=== PATIENT | female | born 1965 | race American Indian/Alaskan Native ===

== ENCOUNTER 2021-01-25 11:31 | Emergency (ER) | payer SELFPAY ==
[2021-01-25 13:14] VITALS: BP 153/71
--- NOTE | 2021-01-25 13:32 | Emergency Department Report ---
ED General Adult HPI - General Chief complaint: Upper Respiratory Infection Stated complaint: SINUS INFECTION Time Seen by Provider: 01/25/21 12:43 Source: patient Mode of arrival: Ambulatory Limitations: No Limitations - History of Present Illness Initial comments: 55-year-old female patient with history of hypertension presents emergency department with complaints of nonproductive cough, nasal congestion, ear pain bilaterally, and sinus pressure for 4 weeks. No known sick contacts. No current steroid or antibiotic use. She has not been on any antibiotics since her symptoms began. She has been using [id number] Tylenol, antihistamines, and Flonase with limited relief. She is out of her blood pressure medication. She does not currently have a primary care provider. Denies fever, chills, neck stiffness, rash, vomiting, shortness of breath, wheezing. Denies all other complaints at this time. - Related Data Previous Rx's Medication Instructions Recorded Last Taken Type Doxycycline Hyclate 100 mg PO BID 5 Days tablet. 01/25/21 Unknown Rx Lisinopril [Zestril] 20 mg PO ONCE 7 Days tablet 01/25/21 Unknown Rx guaiFENesin/DEXTROMETHORPHAN 1 each PO Q6H #20 capsule 01/25/21 Unknown Rx [Coricidin Hbp Chest Jeffery-Cough] hydroCHLOROthiazide [Hctz] 12.5 mg PO QDAY 7 Days capsule 01/25/21 Unknown Rx ED Review of Systems ROS: Stated complaint: SINUS INFECTION Other details as noted in HPI Other: GENERAL: Negative for fever, chills, weight change, anorexia, fatigue. ENT: Positive for ear pain, sore throat, congestion. CARDIOVASCULAR: Negative for chest pain, palpitations, lower extremity swelling. PULMONARY: Negative for cough, dyspnea, wheezing, orthopnea, cyanosis. GASTROINTESTINAL: Negative for abdominal pain, nausea, vomiting, diarrhea, constipation. MUSCULOSKELETAL: Negative for joint pain, joint swelling, myalgias, back pain, neck pain. NEUROLOGICAL: Negative for headache, seizure, syncope, paresthesias, weakness. INTEGUMENTARY: Negative for erythema, rash, diaphoresis, laceration, ecchymosis. HEMATOLOGICAL: Negative for hemoptysis, hematemesis, hematochezia, hematuria. PSYCHIATRIC: Negative for hallucinations, suicidal ideation, homicidal ideation, anxiety, depression. ED Past Medical Hx - Past Medical History Hx Hypertension: Yes - Surgical History Past Surgical History?: No - Social History Smoking Status: Never Smoker Substance Use Type: None - Medications Home Medications: Home Medications Medication Instructions Recorded Confirmed Last Taken Type Doxycycline Hyclate 100 mg PO BID 5 Days tablet. 01/25/21 Unknown Rx Lisinopril [Zestril] 20 mg PO ONCE 7 Days tablet 01/25/21 Unknown Rx guaiFENesin/DEXTROMETHORPHAN 1 each PO Q6H #20 capsule 01/25/21 Unknown Rx [Coricidin Hbp Chest Jeffery-Cough] hydroCHLOROthiazide [Hctz] 12.5 mg PO QDAY 7 Days capsule 01/25/21 Unknown Rx ED Physical Exam - General Limitations: No Limitations - Other Other exam information: General: Awake and alert. No acute distress. Head: Atraumatic, normocephalic. Bilateral frontal and maxillary sinus tenderness. Eyes: EOMI. Pupils are equal and round. Normal sclera and conjunctiva. ENT: Oral mucosa is moist. Normal pharyngeal exam. Normal otoscopic exam. Neck: Supple. No lymphadenopathy. Pulmonary: No respiratory distress. Clear to auscultation bilaterally. Cardiac: Regular rate and rhythm. Pulses are palpable and equal bilaterally. No lower extremity cyanosis or edema. Skin: Warm and dry. No rashes. Abdomen: Soft, non-tender, non-protuberant. No guarding, rigidity, or rebound. Bowel sounds are normal. No organomegaly or masses noted. Back: Normal alignment. No CVA tenderness. Extremities: Symmetrical. Full range of motion intact. Neurological: Alert and oriented, appropriately interactive, no focal deficits. Psych: Cooperative. Appropriate mood and affect. Speech is evenly metered. Thoughts are logically construed. ED Course Vital Signs 01/25/21 12:35 Temperature 98.2 F Pulse Rate 74 Respiratory 18 Rate Blood Pressure 153/71 O2 Sat by Pulse 100 Oximetry ED Medical Decision Making - Medical Decision Making Differential diagnosis including but not limited to: sinusitis, allergic rhinitis, pharyngitis, otitis media, periorbital/orbital cellulitis Patient presents emergency department with signs/symptoms suggestive of sinusitis. She is afebrile, vital signs are stable, no respiratory distress, tolerating oral intake without difficulty. Patient has been taking rnst-nry-zajiiff medications for 1 month without relief. She is an appropriate candidate for antibiotic therapy given symptom duration >14 days. States she is allergic to Augmentin; she will be given Rx for Doxycycline as well as Coricidin for symptomatic relief due to her history of hypertension. Patient expressed understanding and is agreeable to plan of care. Disease transmission precautions discussed. Strict return precautions provided. Patient has a history of hypertension and states she has been out of her Lisin opril and HCTZ. She does not have a primary care provider. She knows the doses of both of her medications. There is no clinical evidence to suggest hypertensive emergency warranting further diagnostic work-up and/or emergent administration of antihypertensive medication at this time. Patient will be provided with a one-week refill of these medications with the understanding that she must call a primary care provider tomorrow for definitive management. Patient expressed understanding and is agreeable to plan of care. Repeat exam is unremarkable and benign. History, exam, diagnostic testing, and current condition do not suggest worrisome pathology to warrant further testing, continued ED treatment, admission, or surgical evaluation at this point. Given the low probability of a significant medical illness, it would be more likely to result in harm than benefit to perform further testing at this stage. Discussed findings, presumptive diagnosis, need for follow-up and specific signs/symptoms that should prompt immediate return to the emergency department. Instructions were explained in detail to the patient in addition to giving written discharge information. Patient expressed understanding and was given the opportunity to ask questions, all of which were satisfactorily answered prior to discharge home. Critical care attestation.: If time is entered above; I have spent that time in minutes in the direct care of this critically ill patient, excluding procedure time. ED Disposition Clinical Impression: History of hypertension Sinusitis Qualifiers: Sinusitis location: unspecified location Chronicity: acute Recurrence: not specified as recurrent Qualified Code(s): J01.90 - Acute sinusitis, unspecified Disposition: TO HOME OR SELFCARE Is pt being admited?: No Does the pt Need Aspirin: No Condition: Stable Instructions: Sinusitis, Adult, [id number] Additional Instructions: Take Doxycyline as directed. Take Lisinopril and HCTZ as previously prescribed. Take Tylenol every 4 hours as needed for pain. Rest. Drink plenty of fluids. Wash hands frequently to prevent disease transmission. Do not share food or drinks with others. You must follow-up with primary care provider for long-term blood pressure management. Call Tuesday to schedule an appointment. See referral information below. Return to the emergency department immediately for new or worsening symptoms. Prescriptions: guaiFENesin/DEXTROMETHORPHAN [Coricidin Hbp Chest Jeffery-Cough] 1 each PO Q6H #20 capsule Doxycycline Hyclate 100 mg PO BID 5 Days tablet. hydroCHLOROthiazide [Hctz] 12.5 mg PO QDAY 7 Days capsule Lisinopril [Zestril] 20 mg PO ONCE 7 Days tablet Referrals: ROSALIO FUNEZ MD [Staff Physician] - 3-[address] [facility] [Outside] - 3-[address] [facility] [Outside] - 3-5 Days [facility] [Outside] - 3-5 Days Time of Disposition: 13:35
== END 2021-01-25 13:44 | disposition home or self-care (01) ==
LOC: ED 11:31
DX: J32.9 Chronic sinusitis, unspecified (principal); I10 Essential (primary) hypertension; Z79.899 Other long term (current) drug therapy
CPT/HCPCS: 99282

== ENCOUNTER 2021-02-16 15:43 | Emergency (ER) | payer SELFPAY ==
[2021-02-16 15:48] VITALS: BP 153/96
--- NOTE | 2021-02-16 17:42 | Emergency Department Report ---
Minor Respiratory - HPI Chief Complaint: Upper Respiratory Infection Stated Complaint: SINUS PAIN Time Seen by Provider: 02/16/21 17:37 Duration: 4 Days Pain Location: Facial, Throat, Nose Severity: moderate Minor Respiratory: Yes Rhinorrhea, Yes Able to Tolerate Fluids, No Sore Throat, No Ear Pain, No Cough, No Sick Contacts, No Hemoptysis, No Chest Pain, No Shortness of Breath, No Fever Other History: 55-year-old female with a history of hypertension takes lisinopril presents to the ED complaining of sinus pain for the past couple weeks. Patient states that she usually gets this every year. Patient states her symptoms are not relieved and she has been having intermittent coughing so she got worried. Patient denies fever, chills, nausea vomiting or any other symptoms. ED Review of Systems ROS: Stated complaint: SINUS PAIN Other details as noted in HPI Comment: All other systems reviewed and negative ED Past Medical Hx - Past Medical History Hx Hypertension: Yes - Social History Smoking Status: Never Smoker Substance Use Type: None - Medications Home Medications: Home Medications Medication Instructions Recorded Confirmed Last Taken Type Doxycycline Hyclate 100 mg PO BID 5 Days tablet.dr 01/25/21 Unknown Rx Lisinopril [Zestril] 20 mg PO ONCE 7 Days tablet 01/25/21 Unknown Rx guaiFENesin/DEXTROMETHORPHAN 1 each PO Q6H #20 capsule 01/25/21 Unknown Rx [Coricidin Hbp Chest Jeffery-Cough] hydroCHLOROthiazide [Hctz] 12.5 mg PO QDAY 7 Days capsule 01/25/21 Unknown Rx Amoxicillin [Amoxicillin TAB] 875 mg PO BID 10 Days #20 tablet 02/16/21 Unknown Rx Naproxen Sodium/Pseudoephedrin 1 each PO BID #10 tab.er.12h 02/16/21 Unknown Rx [Sudafed Sinus 12Hr Pressr-Pain] Minor Respiratory Exam - Exam General: Vital signs noted. No distress. Alert and acting appropriately. HEENT: Yes Moist Mucous Membranes, No Pharyngeal Erythema, No Pharyngeal Exudates, No Rhinorrhea, No Conjuctival Injection, No Frontal Tenderness, No Maxillary Tenderness Ear: Neither TM Bulge, Neither TM Erythema, Neither EAC Pain, Neither EAC Discharge Neck: Yes Supple, No Adenopathy Lungs: Yes Good Air Exchange, No Wheezes, No Ronchi, No Stridor, No Cough, No Labored Respirations, No Retractions, No Use of Accessory Muscles, No Other Abnormal Lung Sounds Heart: Yes Regular, No Murmur Abdomen: Yes Normal Bowel Sounds, No Tenderness, No Peritoneal Signs Skin: No Rash, No Edema Neurologic: Alert and oriented, no deficits. Musculoskeletal: Unremarkable. ED Course Vital Signs 02/16/21 15:47 Temperature 98.5 F Pulse Rate 75 Respiratory 18 Rate Blood Pressure 153/96 O2 Sat by Pulse 100 Oximetry ED Medical Decision Making - Medical Decision Making This 55-year-old female presents with sinusitis with no prior medical problems. Patient had no acute distress or respiratory distress throughout ED stay. Vital signs are normal she is in no distress. Discussed with patient we will treat sinusitis and to follow-up with the primary care physician. Patient understand instructions and will follow-up. Critical care attestation.: If time is entered above; I have spent that time in minutes in the direct care of this critically ill patient, excluding procedure time. ED Disposition Clinical Impression: Sinusitis Disposition: DC-01 TO HOME OR SELFCARE Is pt being admited?: No Does the pt Need Aspirin: No Condition: Stable Instructions: Sinusitis, Adult, Pklb-[id number], Sinus Headache Additional Instructions: Make sure to follow up with the primary care physician as discussed. Take all your medications as you've been prescribed. If you have any worsening symptoms or develop new symptoms please return to ED immediately. Prescriptions: Amoxicillin [Amoxicillin TAB] 875 mg PO BID 10 Days #20 tablet Naproxen Sodium/Pseudoephedrin [Sudafed Sinus 12Hr Pressr-Pain] 1 each PO BID #10 tab.er.12h Referrals: [facility] [Outside] - 3-5 Days [facility] [Outside] - 3-5 Days Forms: Accompanied Note, Work/School Release Form(ED) Time of Disposition: 17:42
== END 2021-02-17 00:15 | disposition home or self-care (01) ==
LOC: ED 15:43
DX: J32.9 Chronic sinusitis, unspecified (principal); I10 Essential (primary) hypertension; Z79.899 Other long term (current) drug therapy
CPT/HCPCS: 99282

== ENCOUNTER 2021-04-14 12:45 | Emergency (ER) | payer SELFPAY ==
[2021-04-14 14:03] VITALS: BP 158/78
--- NOTE | 2021-04-14 14:04 | Emergency Department Report ---
ED ENT HPI - General Chief complaint: Dental/Oral Stated complaint: TOOTHACHE / CRAMPS Time Seen by Provider: 04/14/21 13:27 Source: patient Mode of arrival: Ambulatory Limitations: No Limitations - History of Present Illness Initial comments: 55-year-old female presents to the ER today complaining of dental pain to her right lower jaw. She states that symptoms started last week. She reports associated swelling to her right lower jaw but she states that after taking Tylenol and using a heating pad swelling slightly improved. She states that she did call to see if she could follow-up with a dentist, but only available appointment was in April and they told her that she will likely need to be on antibiotics prior to being seen by them. She denies any facial redness. She denies any difficulty opening her mouth or drooling, fever or chills. Patient also reports abdominal cramps but she states that the cramps she is having is related to that. And this is something that she has typically with her.. She states that the main reason she brought it up with because she has been taking Tylenol with her period cramps but does not help and someone told her that she may need a prescription for ibuprofen. She states that her periods started this past Tuesday. She denies any worsening bleeding or anything new with her MC. MD complaint: tooth pain, other (abdominal cramps ) - Related Data Previous Rx's Medication Instructions Recorded Last Taken Type Doxycycline Hyclate 100 mg PO BID 5 Days tablet. 01/25/21 Unknown Rx Lisinopril [Zestril] 20 mg PO ONCE 7 Days tablet 01/25/21 Unknown Rx guaiFENesin/DEXTROMETHORPHAN 1 each PO Q6H #20 capsule 01/25/21 Unknown Rx [Coricidin Hbp Chest Jeffery-Cough] hydroCHLOROthiazide [Hctz] 12.5 mg PO QDAY 7 Days capsule 01/25/21 Unknown Rx Naproxen Sodium/Pseudoephedrin 1 each PO BID #10 tab.er.12h 02/16/21 Unknown Rx [Sudafed Sinus 12Hr Pressr-Pain] Amoxicillin [Amoxicillin TAB] 875 mg PO BID 10 Days #20 tablet 04/14/21 Unknown Rx Ibuprofen [Motrin] 600 mg PO Q8H PRN #30 tablet 04/14/21 Unknown Rx Allergies Allergy/AdvReac Type Severity Reaction Status Date / Time No Known Allergies Allergy Verified 04/14/21 13:00 ED Dental HPI - General Chief complaint: Dental/Oral Stated complaint: TOOTHACHE / CRAMPS Time Seen by Provider: 04/14/21 13:27 Source: patient Mode of arrival: Ambulatory Limitations: No Limitations - Related Data Previous Rx's Medication Instructions Recorded Last Taken Type Doxycycline Hyclate 100 mg PO BID 5 Days tablet. 01/25/21 Unknown Rx Lisinopril [Zestril] 20 mg PO ONCE 7 Days tablet 01/25/21 Unknown Rx guaiFENesin/DEXTROMETHORPHAN 1 each PO Q6H #20 capsule 01/25/21 Unknown Rx [Coricidin Hbp Chest Jeffery-Cough] hydroCHLOROthiazide [Hctz] 12.5 mg PO QDAY 7 Days capsule 01/25/21 Unknown Rx Naproxen Sodium/Pseudoephedrin 1 each PO BID #10 tab.er.12h 02/16/21 Unknown Rx [Sudafed Sinus 12Hr Pressr-Pain] Amoxicillin [Amoxicillin TAB] 875 mg PO BID 10 Days #20 tablet 04/14/21 Unknown Rx Ibuprofen [Motrin] 600 mg PO Q8H PRN #30 tablet 04/14/21 Unknown Rx Allergies Allergy/AdvReac Type Severity Reaction Status Date / Time No Known Allergies Allergy Verified 04/14/21 13:00 ED Review of Systems ROS: Stated complaint: TOOTHACHE / CRAMPS Other details as noted in HPI Comment: All other systems reviewed and negative Constitutional: no symptoms reported Eyes: denies: eye pain, eye discharge, vision change ENT: other (+dental pain ). denies: ear pain, throat pain, dental pain, hearing loss, epistaxis, congestion Respiratory: denies: cough, shortness of breath, SOB with exertion, SOB at rest, wheezing Cardiovascular: denies: chest pain, palpitations, dyspnea on exertion, edema, syncope, paroxysmal nocturnal dyspnea Gastrointestinal: abdominal pain. denies: nausea, vomiting, diarrhea, constipation, hematemesis, melena, hematochezia Genitourinary: denies: urgency, dysuria, frequency, hematuria, discharge, abnormal menses, dyspareunia Musculoskeletal: denies: back pain, joint swelling, arthralgia Skin: denies: rash, lesions, change in color, change in hair/nails, pruritus Neurological: denies: headache, weakness, paresthesias, confusion, abnormal gait, vertigo Psychiatric: denies: anxiety, depression, auditory hallucinations, visual hallucinations, homicidal thoughts, suicidal thoughts Hematological/Lymphatic: denies: easy bleeding, easy bruising ED Past Medical Hx - Past Medical History Previous Medical History?: Yes Hx Hypertension: Yes - Surgical History Past Surgical History?: No - Social History Smoking Status: Never Smoker Substance Use Type: None - Medications Home Medications: Home Medications Medication Instructions Recorded Confirmed Last Taken Type Doxycycline Hyclate 100 mg PO BID 5 Days tablet.dr 01/25/21 Unknown Rx Lisinopril [Zestril] 20 mg PO ONCE 7 Days tablet 01/25/21 Unknown Rx guaiFENesin/DEXTROMETHORPHAN 1 each PO Q6H #20 capsule 01/25/21 Unknown Rx [Coricidin Hbp Chest Jeffery-Cough] hydroCHLOROthiazide [Hctz] 12.5 mg PO QDAY 7 Days capsule 01/25/21 Unknown Rx Naproxen Sodium/Pseudoephedrin 1 each PO BID #10 tab.er.12h 02/16/21 Unknown Rx [Sudafed Sinus 12Hr Pressr-Pain] Amoxicillin [Amoxicillin TAB] 875 mg PO BID 10 Days #20 tablet 04/14/21 Unknown Rx Ibuprofen [Motrin] 600 mg PO Q8H PRN #30 tablet 04/14/21 Unknown Rx ED Physical Exam - General Limitations: No Limitations General appearance: alert, in no apparent distress - Head Head exam: Present: atraumatic, normocephalic, normal inspection - Eye Eye exam: Present: normal appearance, PERRL, EOMI Pupils: Present: normal accommodation - ENT ENT exam: Present: normal exam, mucous membranes moist - Expanded ENT Exam Expanded Mouth exam: Present: normal external inspection 1 - Dental Tenderness, Other (grayish/black filing noted. No apparent decay or fx. No large abscess) - Neck Neck exam: Present: normal inspection - Respiratory Respiratory exam: Present: normal lung sounds bilaterally. Absent: respiratory distress, wheezes, rales, rhonchi - Cardiovascular Cardiovascular Exam: Present: regular rate, normal rhythm, normal heart sounds - GI/Abdominal GI/Abdominal exam: Present: soft. Absent: distended, tenderness, guarding, rebound - Neurological Exam Neurological exam: Present: alert, oriented X3, CN II-XII intact, normal gait - Psychiatric Psychiatric exam: Present: normal affect, normal mood - Skin Skin exam: Present: intact ED Course Vital Signs 04/14/21 04/14/21 13:01 14:03 Temperature 98.4 F Pulse Rate 77 Respiratory 18 17 Rate Blood Pressure 168/83 Blood Pressure 158/78 [Right] O2 Sat by Pulse 100 Oximetry Critical care attestation.: If time is entered above; I have spent that time in minutes in the direct care of this critically ill patient, excluding procedure time. ED Disposition Clinical Impression: Pain, dental, Abscess, periapical, Dysmenorrhea Disposition: TO HOME OR SELFCARE Is pt being admited?: No Does the pt Need Aspirin: No Condition: Stable Instructions: Dental Abscess, Dysmenorrhea, [id number] Additional Instructions: take the amoxicillin and motrin as prescribed. I recommend that you keep your dental appointment for next month. I recommend that you follow up with OBGYN for continued treatment of your mentrual cramps. Return to ED if worse. Prescriptions: Amoxicillin [Amoxicillin TAB] 875 mg PO BID 10 Days #20 tablet Ibuprofen [Motrin] 600 mg PO Q8H PRN #30 tablet PRN Reason: Pain Referrals: [facility] [Provider Group] - 3-5 Days [facility] [Provider Group] - 3-5 Days Time of Disposition: 14:06
== END 2021-04-14 14:23 | disposition home or self-care (01) ==
LOC: ED 12:45
DX: K04.7 Periapical abscess without sinus (principal); N94.6 Dysmenorrhea, unspecified; I10 Essential (primary) hypertension; Z79.899 Other long term (current) drug therapy
CPT/HCPCS: 99282

== ENCOUNTER 2021-04-28 09:21 | Emergency (ER) | payer SELFPAY ==
[2021-04-28 09:28] VITALS: BP 161/79
--- NOTE | 2021-04-28 10:57 | Emergency Department Report ---
ED Medical Clearance HPI - General Chief complaint: Medical Clearance Stated complaint: RX REFILL/HTN Source: patient Mode of arrival: Ambulatory - History of Present Illness Initial comments: 55-year-old female presents to the emergency room requesting refills on her hypertension medicine. Patient denies any chest pain shortness of breathing headache dizziness nausea vomiting. Home medications: Previous Rx's Medication Instructions Recorded Last Taken Type Doxycycline Hyclate 100 mg PO BID 5 Days tablet. 01/25/21 Unknown Rx guaiFENesin/DEXTROMETHORPHAN 1 each PO Q6H #20 capsule 01/25/21 Unknown Rx [Coricidin Hbp Chest Jeffery-Cough] Naproxen Sodium/Pseudoephedrin 1 each PO BID #10 tab.er.12h 02/16/21 Unknown Rx [Sudafed Sinus 12Hr Pressr-Pain] Amoxicillin [Amoxicillin TAB] 875 mg PO BID 10 Days #20 tablet 04/14/21 Unknown Rx Ibuprofen [Motrin] 600 mg PO Q8H PRN #30 tablet 04/14/21 Unknown Rx Lisinopril [Zestril] 20 mg PO ONCE 30 Days #30 tablet 04/28/21 Unknown Rx hydroCHLOROthiazide [HCTZ] 12.5 mg PO QDAY 30 Days #30 capsule 04/28/21 Unknown Rx Allergies/Adverse reactions: Allergies Allergy/AdvReac Type Severity Reaction Status Date / Time No Known Allergies Allergy Verified 04/14/21 13:00 ED Review of Systems ROS: Stated complaint: RX REFILL/HTN Other details as noted in HPI ED Past Medical Hx - Past Medical History Previous Medical History?: Yes Hx Hypertension: Yes - Social History Smoking Status: Never Smoker Substance Use Type: None - Medications Home Medications: Home Medications Medication Instructions Recorded Confirmed Last Taken Type Doxycycline Hyclate 100 mg PO BID 5 Days tablet. 01/25/21 Unknown Rx guaiFENesin/DEXTROMETHORPHAN 1 each PO Q6H #20 capsule 01/25/21 Unknown Rx [Coricidin Hbp Chest Jeffery-Cough] Naproxen Sodium/Pseudoephedrin 1 each PO BID #10 tab.er.12h 02/16/21 Unknown Rx [Sudafed Sinus 12Hr Pressr-Pain] Amoxicillin [Amoxicillin TAB] 875 mg PO BID 10 Days #20 tablet 04/14/21 Unknown Rx Ibuprofen [Motrin] 600 mg PO Q8H PRN #30 tablet 04/14/21 Unknown Rx Lisinopril [Zestril] 20 mg PO ONCE 30 Days #30 tablet 04/28/21 Unknown Rx hydroCHLOROthiazide [HCTZ] 12.5 mg PO QDAY 30 Days #30 capsule 04/28/21 Unknown Rx ED Physical Exam - General Limitations: No Limitations General appearance: alert, in no apparent distress - Head Head exam: Present: atraumatic, normocephalic - Eye Eye exam: Present: normal appearance - ENT ENT exam: Present: normal external ear exam - Neck Neck exam: Present: normal inspection, full ROM - Respiratory Respiratory exam: Absent: accessory muscle use - Cardiovascular Cardiovascular Exam: Present: regular rate - Back Exam Back exam: Present: normal inspection - Neurological Exam Neurological exam: Present: alert, oriented X3, normal gait - Psychiatric Psychiatric exam: Present: normal affect, normal mood - Skin Skin exam: Present: warm, dry, intact, normal color. Absent: rash ED Course Vital Signs 04/28/21 04/28/21 09:27 09:28 Temperature 97.7 F Pulse Rate 70 Respiratory 18 Rate Blood Pressure 161/79 O2 Sat by Pulse 100 Oximetry ED Medical Decision Making - Medical Decision Making 55-year-old female presents to the emergency room requesting refills on her hypertension medicine. Patient denies any chest pain shortness of breathing headache dizziness nausea vomiting. Medication refill. Discussed with patient she needs to follow-up with a primary care provider as the emergency room was not able to manage chronic disease management. ED Disposition Clinical Impression: Medication refill Disposition: DC-01 TO HOME OR SELFCARE Is pt being admited?: No Does the pt Need Aspirin: No Condition: Stable Instructions: Medicine Refill at the Emergency Department Additional Instructions: Follow up with a pcp. Prescriptions: hydroCHLOROthiazide [HCTZ] 12.5 mg PO QDAY 30 Days #30 capsule Lisinopril [Zestril] 20 mg PO ONCE 30 Days #30 tablet Referrals: ROSALIO FUNEZ MD [Staff Physician] - 3-5 Days [facility] [Outside] - 3-5 Days [facility] [Outside] - 3-5 Days [facility] [Outside] - 3-5 Days
== END 2021-04-28 11:19 | disposition home or self-care (01) ==
LOC: ED 09:21
DX: I10 Essential (primary) hypertension (principal); Z76.0 Encounter for issue of repeat prescription
CPT/HCPCS: 99281

== ENCOUNTER 2021-06-10 16:16 | Emergency (ER) | payer SELFPAY ==
[2021-06-10 18:47] VITALS: BP 183/95
--- NOTE | 2021-06-10 19:22 | Emergency Department Report ---
ED General Adult HPI - General Chief complaint: Dyspnea/Respdistress Stated complaint: SINUS INFECTION Time Seen by Provider: 06/10/21 17:27 Source: patient Mode of arrival: Ambulatory Limitations: No Limitations - Related Data Previous Rx's Medication Instructions Recorded Last Taken Type Doxycycline Hyclate 100 mg PO BID 5 Days tablet. 01/25/21 Unknown Rx guaiFENesin/DEXTROMETHORPHAN 1 each PO Q6H #20 capsule 01/25/21 Unknown Rx [Coricidin Hbp Chest Jeffery-Cough] Naproxen Sodium/Pseudoephedrin 1 each PO BID #10 tab.er.12h 02/16/21 Unknown Rx [Sudafed Sinus 12Hr Pressr-Pain] Amoxicillin [Amoxicillin TAB] 875 mg PO BID 10 Days #20 tablet 04/14/21 Unknown Rx Ibuprofen [Motrin] 600 mg PO Q8H PRN #30 tablet 04/14/21 Unknown Rx Lisinopril [Zestril] 20 mg PO ONCE 30 Days #30 tablet 04/28/21 Unknown Rx hydroCHLOROthiazide [HCTZ] 12.5 mg PO QDAY 30 Days #30 capsule 04/28/21 Unknown Rx Amoxicillin/Potassium Clav 1 each PO BID #20 tablet 06/10/21 Unknown Rx [Augmentin 875-125 Tablet] Olopatadine HCl [Patanase] 30.5 gm NS DAILY #1 spray.pump 06/10/21 Unknown Rx lisinopriL [Lisinopril] 20 mg PO DAILY #14 tablet 06/10/21 Unknown Rx predniSONE [Deltasone] 20 mg PO QDAY #5 tab 06/10/21 Unknown Rx Allergies Allergy/AdvReac Type Severity Reaction Status Date / Time No Known Allergies Allergy Verified 04/14/21 13:00 ED Review of Systems ROS: Stated complaint: SINUS INFECTION Other details as noted in HPI ED Past Medical Hx - Past Medical History Previous Medical History?: Yes Hx Hypertension: Yes - Social History Smoking Status: Never Smoker Substance Use Type: None - Medications Home Medications: Home Medications Medication Instructions Recorded Confirmed Last Taken Type Doxycycline Hyclate 100 mg PO BID 5 Days tablet. 01/25/21 Unknown Rx guaiFENesin/DEXTROMETHORPHAN 1 each PO Q6H #20 capsule 01/25/21 Unknown Rx [Coricidin Hbp Chest Jeffery-Cough] Naproxen Sodium/Pseudoephedrin 1 each PO BID #10 tab.er.12h 02/16/21 Unknown Rx [Sudafed Sinus 12Hr Pressr-Pain] Amoxicillin [Amoxicillin TAB] 875 mg PO BID 10 Days #20 tablet 04/14/21 Unknown Rx Ibuprofen [Motrin] 600 mg PO Q8H PRN #30 tablet 04/14/21 Unknown Rx Lisinopril [Zestril] 20 mg PO ONCE 30 Days #30 tablet 04/28/21 Unknown Rx hydroCHLOROthiazide [HCTZ] 12.5 mg PO QDAY 30 Days #30 capsule 04/28/21 Unknown Rx Amoxicillin/Potassium Clav 1 each PO BID #20 tablet 06/10/21 Unknown Rx [Augmentin 875-125 Tablet] Olopatadine HCl [Patanase] 30.5 gm NS DAILY #1 spray.pump 06/10/21 Unknown Rx lisinopriL [Lisinopril] 20 mg PO DAILY #14 tablet 06/10/21 Unknown Rx predniSONE [Deltasone] 20 mg PO QDAY #5 tab 06/10/21 Unknown Rx ED Physical Exam - General Limitations: No Limitations ED Course Vital Signs 06/10/21 06/10/21 17:04 18:43 Temperature 98.0 F 98.6 F Pulse Rate 72 75 Respiratory 18 15 Rate Blood Pressure 178/89 183/95 O2 Sat by Pulse 100 100 Oximetry Critical care attestation.: If time is entered above; I have spent that time in minutes in the direct care of this critically ill patient, excluding procedure time. ED Disposition Disposition: 01 HOME / SELF CARE / HOMELESS Is pt being admited?: No Does the pt Need Aspirin: No Condition: Stable Instructions: Sinusitis, Adult, Qnhn-ab-Wrky, Cluster Headache, Sinus Headache Prescriptions: Amoxicillin/Potassium Clav [Augmentin 875-125 Tablet] 1 each PO BID #20 tablet predniSONE [Deltasone] 20 mg PO QDAY #5 tab lisinopriL [Lisinopril] 20 mg PO DAILY #14 tablet Olopatadine HCl [Patanase] 30.5 gm NS DAILY #1 spray.pump Referrals: PRIMARY CARE, [Primary Care Provider] - 3-5 Days
== END 2021-06-10 19:25 | disposition home or self-care (01) ==
LOC: ED 16:16
DX: J32.9 Chronic sinusitis, unspecified (principal); I10 Essential (primary) hypertension
CPT/HCPCS: 99282

== ENCOUNTER 2021-08-27 17:51 | Emergency (ER) | payer SELFPAY ==
[2021-08-27 18:20] VITALS: BP 156/75
--- NOTE | 2021-08-27 23:36 | Emergency Department Report ---
- General Chief Complaint: Upper Respiratory Infection Stated Complaint: SINUS INFECTION PUI?: No Source: patient Mode of arrival: Ambulatory Limitations: No Limitations - History of Present Illness Initial Comments: Patient is a 55-year-old -Hung[place] female with a history of hypertension and chronic recurrent sinusitis presents to the ED with acute exacerbation of her chronic sinus pressure and headache, nasal and sinus congestion, and dry cough for the last 1 week. Patient states that her symptoms are worse at night as she experiences postnasal drip causing significant cough. Patient states that she has been taking xvyy-hnk-vxdunrj medications like Claritin with no relief. Patient denies fever, chills, nausea and vomiting, dizziness, syncope, change in vision, neck pain, sore throat, abdominal pain, palpitations, diarrhea or back pain. MD Complaint: cough, rhinorrhea, nasal congestion, sinus pain, other (Sinus headache) -: Sudden, week(s) (1) Severity: severe Severity scale (0 -10): 7 Quality: sharp, aching Consistency: constant Improves With: nothing Worsens With: nothing Associated Symptoms: denies other symptoms, headache, rhinorrhea, nasal congestion, cough. denies: fever, chills, myalgias, diaphoresis, sore throat, stiff neck, chest pain, shortness of breath, abdominal pain, nausea, vomiting, diarrhea, dysuria, confusion, weight loss, epistaxis, ear pain, other Treatments Prior to Arrival: "cold medicine" - Related Data Previous Rx's Medication Instructions Recorded Last Taken Type Doxycycline Hyclate 100 mg PO BID 5 Days tablet. 01/25/21 Unknown Rx guaiFENesin/DEXTROMETHORPHAN 1 each PO Q6H #20 capsule 01/25/21 Unknown Rx [Coricidin Hbp Chest Jeffery-Cough] Naproxen Sodium/Pseudoephedrin 1 each PO BID #10 tab.er.12h 02/16/21 Unknown Rx [Sudafed Sinus 12Hr Pressr-Pain] Ibuprofen [Motrin] 600 mg PO Q8H PRN #30 tablet 04/14/21 Unknown Rx Lisinopril [Zestril] 20 mg PO ONCE 30 Days #30 tablet 04/28/21 Unknown Rx hydroCHLOROthiazide [HCTZ] 12.5 mg PO QDAY 30 Days #30 capsule 04/28/21 Unknown Rx Amoxicillin/Potassium Clav 1 each PO BID #20 tablet 06/10/21 Unknown Rx [Augmentin 875-125 Tablet] Olopatadine HCl [Patanase] 30.5 gm NS DAILY #1 spray.pump 06/10/21 Unknown Rx lisinopriL [Lisinopril] 20 mg PO DAILY #14 tablet 06/10/21 Unknown Rx Amoxicillin [Amoxicillin TAB] 875 mg PO BID 10 Days #20 tablet 08/27/21 Unknown Rx Benzonatate [Tessalon Perles] 100 mg PO Q8HR #30 capsule 08/27/21 Unknown Rx Cetirizine HCl [Zyrtec 10mg tab] 10 mg PO DAILY #30 tablet 08/27/21 Unknown Rx Ibuprofen [Motrin] 800 mg PO Q8HR PRN #30 tablet 08/27/21 Unknown Rx predniSONE [Deltasone] 40 mg PO QDAY #10 tab 08/27/21 Unknown Rx Allergies Allergy/AdvReac Type Severity Reaction Status Date / Time No Known Allergies Allergy Verified 04/14/21 13:00 ED Review of Systems ROS: Stated complaint: SINUS INFECTION Other details as noted in HPI Constitutional: denies: chills, fever Eyes: denies: eye pain, eye discharge, vision change ENT: congestion. denies: ear pain, throat pain Respiratory: cough. denies: shortness of breath, wheezing Cardiovascular: denies: chest pain, palpitations Endocrine: no symptoms reported Gastrointestinal: denies: abdominal pain, nausea, vomiting, diarrhea Genitourinary: denies: urgency, dysuria, discharge Musculoskeletal: denies: back pain, joint swelling, arthralgia Skin: denies: rash, lesions Neurological: headache. denies: weakness, paresthesias Psychiatric: denies: anxiety, depression Hematological/Lymphatic: denies: easy bleeding, easy bruising ED Past Medical Hx - Past Medical History Hx Hypertension: Yes - Social History Smoking Status: Never Smoker Substance Use Type: None - Medications Home Medications: Home Medications Medication Instructions Recorded Confirmed Last Taken Type Doxycycline Hyclate 100 mg PO BID 5 Days tablet. 01/25/21 Unknown Rx guaiFENesin/DEXTROMETHORPHAN 1 each PO Q6H #20 capsule 01/25/21 Unknown Rx [Coricidin Hbp Chest Jeffery-Cough] Naproxen Sodium/Pseudoephedrin 1 each PO BID #10 tab.er.12h 02/16/21 Unknown Rx [Sudafed Sinus 12Hr Pressr-Pain] Ibuprofen [Motrin] 600 mg PO Q8H PRN #30 tablet 04/14/21 Unknown Rx Lisinopril [Zestril] 20 mg PO ONCE 30 Days #30 tablet 04/28/21 Unknown Rx hydroCHLOROthiazide [HCTZ] 12.5 mg PO QDAY 30 Days #30 capsule 04/28/21 Unknown Rx Amoxicillin/Potassium Clav 1 each PO BID #20 tablet 06/10/21 Unknown Rx [Augmentin 875-125 Tablet] Olopatadine HCl [Patanase] 30.5 gm NS DAILY #1 spray.pump 06/10/21 Unknown Rx lisinopriL [Lisinopril] 20 mg PO DAILY #14 tablet 06/10/21 Unknown Rx Amoxicillin [Amoxicillin TAB] 875 mg PO BID 10 Days #20 tablet 08/27/21 Unknown Rx Benzonatate [Tessalon Perles] 100 mg PO Q8HR #30 capsule 08/27/21 Unknown Rx Cetirizine HCl [Zyrtec 10mg tab] 10 mg PO DAILY #30 tablet 08/27/21 Unknown Rx Ibuprofen [Motrin] 800 mg PO Q8HR PRN #30 tablet 08/27/21 Unknown Rx predniSONE [Deltasone] 40 mg PO QDAY #10 tab 08/27/21 Unknown Rx ED Physical Exam - General Limitations: No Limitations General appearance: alert, in no apparent distress - Head Head exam: Present: atraumatic, normocephalic, normal inspection - Eye Eye exam: Present: normal appearance, PERRL, EOMI Pupils: Present: normal accommodation - ENT ENT exam: Present: normal orophraynx, mucous membranes moist, TM's normal bilaterally, normal external ear exam, other (Grossly congested nasal passages; palpable frontal and maxillary sinus tenderness) - Neck Neck exam: Present: normal inspection, full ROM - Respiratory Respiratory exam: Present: normal lung sounds bilaterally. Absent: respiratory distress, wheezes, rales, rhonchi, chest wall tenderness, accessory muscle use, decreased breath sounds, prolonged expiratory - Cardiovascular Cardiovascular Exam: Present: regular rate, normal rhythm, normal heart sounds. Absent: systolic murmur, diastolic murmur, rubs, gallop - GI/Abdominal GI/Abdominal exam: Present: soft, normal bowel sounds. Absent: tenderness, guarding, rebound, rigid, hyperactive bowel sounds, hypoactive bowel sounds, organomegaly - Extremities Exam Extremities exam: Present: normal inspection, full ROM, normal capillary refill - Back Exam Back exam: Present: normal inspection, full ROM. Absent: tenderness, CVA tenderness (R), CVA tenderness (L), muscle spasm, paraspinal tenderness - Neurological Exam Neurological exam: Present: alert, oriented X3, CN II-XII intact, normal gait, reflexes normal - Psychiatric Psychiatric exam: Present: normal affect, normal mood - Skin Skin exam: Present: warm, dry, intact, normal color. Absent: rash ED Course Vital Signs 08/27/21 18:18 Temperature 98.3 F Pulse Rate 80 Respiratory 15 Rate Blood Pressure 156/75 O2 Sat by Pulse 100 Oximetry ED Medical Decision Making - Medical Decision Making This is a 55-year-old -Hung[place] female with a history of hypertension and chronic recurrent sinusitis presents to the ED with acute exacerbation of her chronic sinus pressure and headache, nasal and sinus congestion, and dry cough for the last 1 week. Patient states that her symptoms are worse at night as she experiences postnasal drip causing significant cough. Patient states that she has been taking [id number] medications like Claritin with no relief. In the ED, patient is alert and oriented x3 and is not in any distress. Patient is hemodynamically stable. Patient was discharged home on medications based on the history and physical exam findings. Patient was advised to follow-up with her primary care physician in 7 to 10 days for reevaluation. Patient was advised return to the ED immediately if symptoms get worse. - Differential Diagnosis Sinusitis; URI; rhinitis; bronchitis; pneumonia Critical care attestation.: If time is entered above; I have spent that time in minutes in the direct care of this critically ill patient, excluding procedure time. ED Disposition Clinical Impression: Acute upper respiratory infection, Acute recurrent frontal sinusitis Acute bronchitis Qualifiers: Bronchitis organism: other organism Qualified Code(s): J20.8 - Acute bronchitis due to other specified organisms Allergic rhinitis Qualifiers: Allergic rhinitis trigger: other Allergic rhinitis seasonality: unspecified Qualified Code(s): J30.89 - Other allergic rhinitis Disposition: 01 HOME / SELF CARE / HOMELESS Is pt being admited?: No Does the pt Need Aspirin: No Condition: Stable Instructions: Acute Bronchitis (ED), Sinusitis, Adult, Msev-qx-Zbgj, Upper Respiratory Infection, Adult, Eaur-yk-Hhcb, Cough, Adult, Thkg-tt-Rnfo, Acute Bronchitis, Adult, Qqnn-ms-Cfei, Allergic Rhinitis, Adult, Wxxo-sp-Vviw Additional Instructions: Your symptoms are likely due to upper respiratory infection, versus chronic rhinitis versus chronic sinusitis. Therefore take medications with food, drink plenty of fluids and follow-up with your primary care physician in 7 to 10 days for reevaluation. Return to the ED immediately if symptoms get worse. Prescriptions: Amoxicillin [Amoxicillin TAB] 875 mg PO BID 10 Days #20 tablet predniSONE [Deltasone] 40 mg PO QDAY #10 tab Ibuprofen [Motrin] 800 mg PO Q8HR PRN #30 tablet PRN Reason: Pain , Severe (7-10) Benzonatate [Tessalon Perles] 100 mg PO Q8HR #30 capsule Cetirizine HCl [Zyrtec 10mg tab] 10 mg PO DAILY #30 tablet Referrals: [facility] [Provider Group] - 7-10 days Forms: Work/School Release Form(ED) Time of Disposition: 23:37 Print Language: ALBANIAN
== END 2021-08-28 00:30 | disposition home or self-care (01) ==
LOC: ED 17:51
DX: J01.11 Acute recurrent frontal sinusitis (principal); J20.8 Acute bronchitis due to other specified organisms; J30.89 Other allergic rhinitis
CPT/HCPCS: 99282

== ENCOUNTER 2021-10-24 09:59 | Emergency (ER) | payer SELFPAY ==
[2021-10-24 10:04] VITALS: BP 161/87
--- NOTE | 2021-10-24 10:25 | Emergency Department Report ---
ED General Adult HPI - General Chief complaint: Headache Stated complaint: SINUS INFECTION Time Seen by Provider: 10/24/21 10:11 Source: patient Mode of arrival: Ambulatory Limitations: No Limitations - History of Present Illness Initial comments: Patient is a 55-year-old female presents emergency room complaints of a sinus infection that began 7 days ago. She has associated headache, sinus pressure, congestion. She denies any fever, cough, shortness of breath, vomiting, diarrhea, chills, body aches. She denies any sick contacts or recent travel. She states that she took a COVID-19 test and reports it was negative. she states she has been using flonase nasal spray and benadryl without much relief. Past medical history of hypertension and states that she takes lisinopril but reports that she has not yet taken her medication today but she does have it at home and will take it once she returns home. No allergies to medications. - Related Data Previous Rx's Medication Instructions Recorded Last Taken Type Doxycycline Hyclate 100 mg PO BID 5 Days tablet. 01/25/21 Unknown Rx Naproxen Sodium/Pseudoephedrin 1 each PO BID #10 tab.er.12h 02/16/21 Unknown Rx [Sudafed Sinus 12Hr Pressr-Pain] Ibuprofen [Motrin] 600 mg PO Q8H PRN #30 tablet 04/14/21 Unknown Rx Lisinopril [Zestril] 20 mg PO ONCE 30 Days #30 tablet 04/28/21 Unknown Rx hydroCHLOROthiazide [HCTZ] 12.5 mg PO QDAY 30 Days #30 capsule 04/28/21 Unknown Rx Olopatadine HCl [Patanase] 30.5 gm NS DAILY #1 spray.pump 06/10/21 Unknown Rx lisinopriL [Lisinopril] 20 mg PO DAILY #14 tablet 06/10/21 Unknown Rx Amoxicillin [Amoxicillin TAB] 875 mg PO BID 10 Days #20 tablet 08/27/21 Unknown Rx Benzonatate [Tessalon Perles] 100 mg PO Q8HR #30 capsule 08/27/21 Unknown Rx Cetirizine HCl [Zyrtec 10mg tab] 10 mg PO DAILY #30 tablet 08/27/21 Unknown Rx Ibuprofen [Motrin] 800 mg PO Q8HR PRN #30 tablet 08/27/21 Unknown Rx predniSONE [Deltasone] 40 mg PO QDAY #10 tab 08/27/21 Unknown Rx Amoxicillin/Potassium Clav 1 each PO BID #20 tablet 10/24/21 Unknown Rx [Augmentin 875-125 Tablet] Fluconazole [Diflucan TAB] 200 mg PO QDAY #1 tablet 10/24/21 Unknown Rx guaiFENesin/DEXTROMETHORPHAN 1 each PO Q6H #20 capsule 10/24/21 Unknown Rx [Coricidin Hbp Chest Jeffery-Cough] Allergies Allergy/AdvReac Type Severity Reaction Status Date / Time No Known Allergies Allergy Verified 04/14/21 13:00 ED Review of Systems ROS: Stated complaint: SINUS INFECTION Other details as noted in HPI Comment: All other systems reviewed and negative ED Past Medical Hx - Past Medical History Previous Medical History?: Yes Hx Hypertension: Yes - Surgical History Past Surgical History?: No - Social History Smoking Status: Never Smoker Substance Use Type: None - Medications Home Medications: Home Medications Medication Instructions Recorded Confirmed Last Taken Type Doxycycline Hyclate 100 mg PO BID 5 Days tablet. 01/25/21 Unknown Rx Naproxen Sodium/Pseudoephedrin 1 each PO BID #10 tab.er.12h 02/16/21 Unknown Rx [Sudafed Sinus 12Hr Pressr-Pain] Ibuprofen [Motrin] 600 mg PO Q8H PRN #30 tablet 04/14/21 Unknown Rx Lisinopril [Zestril] 20 mg PO ONCE 30 Days #30 tablet 04/28/21 Unknown Rx hydroCHLOROthiazide [HCTZ] 12.5 mg PO QDAY 30 Days #30 capsule 04/28/21 Unknown Rx Olopatadine HCl [Patanase] 30.5 gm NS DAILY #1 spray.pump 06/10/21 Unknown Rx lisinopriL [Lisinopril] 20 mg PO DAILY #14 tablet 06/10/21 Unknown Rx Amoxicillin [Amoxicillin TAB] 875 mg PO BID 10 Days #20 tablet 08/27/21 Unknown Rx Benzonatate [Tessalon Perles] 100 mg PO Q8HR #30 capsule 08/27/21 Unknown Rx Cetirizine HCl [Zyrtec 10mg tab] 10 mg PO DAILY #30 tablet 08/27/21 Unknown Rx Ibuprofen [Motrin] 800 mg PO Q8HR PRN #30 tablet 08/27/21 Unknown Rx predniSONE [Deltasone] 40 mg PO QDAY #10 tab 08/27/21 Unknown Rx Amoxicillin/Potassium Clav 1 each PO BID #20 tablet 10/24/21 Unknown Rx [Augmentin 875-125 Tablet] Fluconazole [Diflucan TAB] 200 mg PO QDAY #1 tablet 10/24/21 Unknown Rx guaiFENesin/DEXTROMETHORPHAN 1 each PO Q6H #20 capsule 10/24/21 Unknown Rx [Coricidin Hbp Chest Jeffery-Cough] ED Physical Exam - General Limitations: No Limitations General appearance: alert, in no apparent distress - Head Head exam: Present: atraumatic, normocephalic - Eye Eye exam: Present: normal appearance - ENT ENT exam: Present: mucous membranes moist, other (maxillary sinus ttp bilaterally, mild edema of the nasal turbinates, no frontal sinus ttp) - Respiratory Respiratory exam: Present: normal lung sounds bilaterally. Absent: respiratory distress, wheezes, rales, rhonchi, stridor, chest wall tenderness, accessory muscle use, decreased breath sounds, prolonged expiratory - Cardiovascular Cardiovascular Exam: Present: regular rate, normal rhythm, normal heart sounds. Absent: systolic murmur, diastolic murmur, rubs, gallop - Neurological Exam Neurological exam: Present: alert, oriented X3 - Psychiatric Psychiatric exam: Present: normal affect, normal mood - Skin Skin exam: Present: warm, dry, intact ED Course Vital Signs 10/24/21 10:02 Temperature 97.4 F L Pulse Rate 67 Respiratory 16 Rate Blood Pressure 161/87 O2 Sat by Pulse 100 Oximetry ED Medical Decision Making - Medical Decision Making Patient is a 55-year-old female presents emergency room complaints of a sinus infection that began 7 days ago. She has associated headache, sinus pressure, congestion. She denies any fever, cough, shortness of breath, vomiting, diarrhea, chills, body aches. She denies any sick contacts or recent travel. She states that she took a COVID-19 test and reports it was negative. she states she has been using flonase nasal spray and benadryl without much relief. Past medical history of hypertension and states that she takes lisinopril but reports that she has not yet taken her medication today but she does have it at home and will take it once she returns home. No allergies to medications. vitals with elevated blood pressure of 161/87 otherwise stable. on exam: maxillary sinus ttp bilaterally, mild edema of the nasal turbinates, no frontal sinus ttp. Symptoms and examination appear likely consistent with acute sinusitis. Patient symptoms have been ongoing for a week and she has had no relief with [id number] medications. Patient given prescription for medications. She states that whenever she takes antibiotics she gets a yeast infection and is requesting Diflucan. Advised patient Please take medication as prescribed. Follow-up with your primary care doctor. Return to emergency room for any new or worsening symptoms. Please take your blood pressure medication as prescribed by your primary care doctor. Eat a low-sodium diet. Incorporate 30-60 minutes of daily exercise. Keep a blood pressure log and take this to your primary care doctor. Critical care attestation.: If time is entered above; I have spent that time in minutes in the direct care of this critically ill patient, excluding procedure time. ED Disposition Clinical Impression: Elevated blood pressure reading Acute sinusitis Qualifiers: Sinusitis location: maxillary Recurrence: non-recurrent Qualified Code(s): J01.00 - Acute maxillary sinusitis, unspecified Disposition: HOME / SELF CARE / HOMELESS Is pt being admited?: No Does the pt Need Aspirin: No Condition: Stable Instructions: Sinusitis, Adult, [id number] Additional Instructions: Please take medication as prescribed. Follow-up with your primary care doctor. Return to emergency room for any new or worsening symptoms. Please take your blood pressure medication as prescribed by your primary care doctor. Eat a low-sodium diet. Incorporate 30-60 minutes of daily exercise. Keep a blood pressure log and take this to your primary care doctor. Prescriptions: Amoxicillin/Potassium Clav [Augmentin 875-125 Tablet] 1 each PO BID #20 tablet guaiFENesin/DEXTROMETHORPHAN [Coricidin Hbp Chest Jeffery-Cough] 1 each PO Q6H #20 capsule Fluconazole [Diflucan TAB] 200 mg PO QDAY #1 tablet Referrals: ROSALIO FUNEZ MD [Staff Physician] - 3-5 Days [facility] [Provider Group] - 3-5 Days your, primary care doctor [Other] - 3-5 Days Time of Disposition: 10:22 Print Language: SRI LANKAN
== END 2021-10-24 10:47 | disposition home or self-care (01) ==
LOC: ED 09:59
DX: I10 Essential (primary) hypertension (principal); J01.00 Acute maxillary sinusitis, unspecified
CPT/HCPCS: 99282

== ENCOUNTER 2021-12-14 18:47 | Emergency (ER) | payer SELFPAY ==
[2021-12-14 19:18] VITALS: BP 149/77
== END 2021-12-15 00:17 | disposition left against medical advice (07) ==
LOC: ED 18:47
DX: Z04.1 Encounter for examination and observation following transport accident (principal); Z53.21 Procedure and treatment not carried out due to patient leaving prior to being seen by health care provider; V89.2XXA Person injured in unspecified motor-vehicle accident, traffic, initial encounter; Y93.89 Activity, other specified; Y92.89 Other specified places as the place of occurrence of the external cause; Y99.8 Other external cause status

== ENCOUNTER 2021-12-29 18:47 | Emergency (ER) | payer SELFPAY ==
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
[2021-12-30 02:32] VITALS: BP 136/68
== END 2021-12-30 01:20 | disposition home or self-care (01) ==
LOC: ED 18:47
DX: S16.1XXA Strain of muscle, fascia and tendon at neck level, initial encounter (principal); I10 Essential (primary) hypertension; S39.012A Strain of muscle, fascia and tendon of lower back, initial encounter; V89.2XXA Person injured in unspecified motor-vehicle accident, traffic, initial encounter; Y93.89 Activity, other specified; Y92.89 Other specified places as the place of occurrence of the external cause; Y99.8 Other external cause status
CPT/HCPCS: 99282

== ENCOUNTER 2022-02-03 10:13 | Emergency (ER) | payer SELFPAY ==
--- NOTE | 2022-02-03 13:02 | Emergency Department Report ---
ED Medical Clearance HPI - General Chief complaint: Medical Clearance Stated complaint: SINUS/BLOOD PRESSURE Time Seen by Provider: 02/03/22 12:50 Source: patient Mode of arrival: Ambulatory - History of Present Illness Initial comments: 56-year-old -[place] female presents to the emergency room requesting a refill on her lisinopril 20 mg for hypertension. Patient states that her primary care provider has stopped practicing and she does not have insurance. She denies any headache no shortness of breath no chest pain or lower leg edema. She also complains of sinus pressure. She denies any fever no chills. Reason for Medical Clearance: other (Medication refill) Home medications: Previous Rx's Medication Instructions Recorded Last Taken Type Doxycycline Hyclate 100 mg PO BID 5 Days tablet. 01/25/21 Unknown Rx Naproxen Sodium/Pseudoephedrin 1 each PO BID #10 tab.er.12h 02/16/21 Unknown Rx [Sudafed Sinus 12Hr Pressr-Pain] Ibuprofen [Motrin] 600 mg PO Q8H PRN #30 tablet 04/14/21 Unknown Rx hydroCHLOROthiazide [HCTZ] 12.5 mg PO QDAY 30 Days #30 capsule 04/28/21 Unknown Rx Olopatadine HCl [Patanase] 30.5 gm NS DAILY #1 spray.pump 06/10/21 Unknown Rx Amoxicillin [Amoxicillin TAB] 875 mg PO BID 10 Days #20 tablet 08/27/21 Unknown Rx Benzonatate [Tessalon Perles] 100 mg PO Q8HR #30 capsule 08/27/21 Unknown Rx Cetirizine HCl [Zyrtec 10mg tab] 10 mg PO DAILY #30 tablet 08/27/21 Unknown Rx Ibuprofen [Motrin] 800 mg PO Q8HR PRN #30 tablet 08/27/21 Unknown Rx predniSONE [Deltasone] 40 mg PO QDAY #10 tab 08/27/21 Unknown Rx Amoxicillin/Potassium Clav 1 each PO BID #20 tablet 10/24/21 Unknown Rx [Augmentin 875-125 Tablet] Fluconazole [Diflucan TAB] 200 mg PO QDAY #1 tablet 10/24/21 Unknown Rx guaiFENesin/DEXTROMETHORPHAN 1 each PO Q6H #20 capsule 10/24/21 Unknown Rx [Coricidin Hbp Chest Jeffery-Cough] Cetirizine HCl [Zyrtec 10mg tab] 10 mg PO DAILY PRN #30 tab 12/30/21 Unknown Rx Cyclobenzaprine [Flexeril] 10 mg PO BID PRN #15 tab 12/30/21 Unknown Rx Naproxen 500 mg PO BID PRN #30 tab 12/30/21 Unknown Rx hydroCHLOROthiazide [Hctz] 12.5 mg PO QDAY #30 capsule 12/30/21 Unknown Rx lisinopriL [Lisinopril] 20 mg PO DAILY #30 tablet 12/30/21 Unknown Rx Lisinopril [Zestril] 20 mg PO ONCE 30 Days #30 tablet 02/03/22 Unknown Rx Allergies/Adverse reactions: Allergies Allergy/AdvReac Type Severity Reaction Status Date / Time No Known Allergies Allergy Verified 02/03/22 11:46 ED Review of Systems ROS: Stated complaint: SINUS/BLOOD PRESSURE Other details as noted in HPI Comment: All other systems reviewed and negative Constitutional: denies: fever ENT: congestion, other (Sneezing) Respiratory: denies: cough ED Past Medical Hx - Past Medical History Hx Hypertension: Yes - Social History Smoking Status: Never Smoker Substance Use Type: None - Medications Home Medications: Home Medications Medication Instructions Recorded Confirmed Last Taken Type Doxycycline Hyclate 100 mg PO BID 5 Days tablet. 01/25/21 Unknown Rx Naproxen Sodium/Pseudoephedrin 1 each PO BID #10 tab.er.12h 02/16/21 Unknown Rx [Sudafed Sinus 12Hr Pressr-Pain] Ibuprofen [Motrin] 600 mg PO Q8H PRN #30 tablet 04/14/21 Unknown Rx hydroCHLOROthiazide [HCTZ] 12.5 mg PO QDAY 30 Days #30 capsule 04/28/21 Unknown Rx Olopatadine HCl [Patanase] 30.5 gm NS DAILY #1 spray.pump 06/10/21 Unknown Rx Amoxicillin [Amoxicillin TAB] 875 mg PO BID 10 Days #20 tablet 08/27/21 Unknown Rx Benzonatate [Tessalon Perles] 100 mg PO Q8HR #30 capsule 08/27/21 Unknown Rx Cetirizine HCl [Zyrtec 10mg tab] 10 mg PO DAILY #30 tablet 08/27/21 Unknown Rx Ibuprofen [Motrin] 800 mg PO Q8HR PRN #30 tablet 08/27/21 Unknown Rx predniSONE [Deltasone] 40 mg PO QDAY #10 tab 08/27/21 Unknown Rx Amoxicillin/Potassium Clav 1 each PO BID #20 tablet 10/24/21 Unknown Rx [Augmentin 875-125 Tablet] Fluconazole [Diflucan TAB] 200 mg PO QDAY #1 tablet 10/24/21 Unknown Rx guaiFENesin/DEXTROMETHORPHAN 1 each PO Q6H #20 capsule 10/24/21 Unknown Rx [Coricidin Hbp Chest Jeffery-Cough] Cetirizine HCl [Zyrtec 10mg tab] 10 mg PO DAILY PRN #30 tab 12/30/21 Unknown Rx Cyclobenzaprine [Flexeril] 10 mg PO BID PRN #15 tab 12/30/21 Unknown Rx Naproxen 500 mg PO BID PRN #30 tab 12/30/21 Unknown Rx hydroCHLOROthiazide [Hctz] 12.5 mg PO QDAY #30 capsule 12/30/21 Unknown Rx lisinopriL [Lisinopril] 20 mg PO DAILY #30 tablet 12/30/21 Unknown Rx Lisinopril [Zestril] 20 mg PO ONCE 30 Days #30 tablet 02/03/22 Unknown Rx ED Physical Exam - General Limitations: No Limitations General appearance: alert, in no apparent distress - Head Head exam: Present: atraumatic, normocephalic - Eye Eye exam: Present: normal appearance - ENT ENT exam: Absent: normal external ear exam - Neck Neck exam: Present: normal inspection, full ROM - Respiratory Respiratory exam: Absent: respiratory distress - Cardiovascular Cardiovascular Exam: Present: regular rate - Extremities Exam Extremities exam: Present: full ROM - Back Exam Back exam: Present: full ROM - Neurological Exam Neurological exam: Present: alert, oriented X3, normal gait - Psychiatric Psychiatric exam: Present: normal affect, normal mood - Skin Skin exam: Present: warm, dry, intact, normal color. Absent: rash ED Course Vital Signs 02/03/22 11:44 Temperature 98.6 F Pulse Rate 66 Respiratory 16 Rate Blood Pressure 157/91 [Right] O2 Sat by Pulse 100 Oximetry ED Medical Decision Making - Medical Decision Making 56-year-old -[place] female presents to the emergency room requesting a refill on her lisinopril 20 mg for hypertension. Patient states that her primary care provider has stopped practicing and she does not have insurance. She denies any headache no shortness of breath no chest pain or lower leg edema. She also complains of sinus pressure. She denies any fever no chills. Refill on lisinopril 20 mg daily. Recommend Zyrtec's Claritin for sinus. ED Disposition Clinical Impression: Hypertension, Medication refill, Allergic rhinitis Disposition: 01 HOME / SELF CARE / HOMELESS Is pt being admited?: No Does the pt Need Aspirin: No Condition: Stable Instructions: Hypertension (ED), Preventing Hypertension, Hypertension, Adult, [id number] Additional Instructions: Recommend [id number] Zyrtec's Claritin and Flonase for your seasonal aller gies. Continue with your blood pressure medication. Very important you follow- up with a primary care provider. Prescriptions: Lisinopril [Zestril] 20 mg PO ONCE 30 Days #30 tablet Referrals: ROSALIO FUNEZ MD [Staff Physician] - 3-5 Days MIKE LOPEZ MD [Staff Physician] - 3-5 Days Forms: Work/School Release Form(ED) Time of Disposition: 13:01
[2022-02-03 13:25] VITALS: BP 118/74
== END 2022-02-03 13:26 | disposition home or self-care (01) ==
LOC: ED 10:13
DX: I10 Essential (primary) hypertension (principal); Z76.0 Encounter for issue of repeat prescription; J30.9 Allergic rhinitis, unspecified
CPT/HCPCS: 99283